=== PATIENT | male | born 1980 | race Caucasian/White ===

== ENCOUNTER 2024-02-25 02:17 | Emergency (ER) | payer BC ==
[~2024-02-25] VITALS: Ht 182.9 cm; Wt 117.9 kg
[2024-02-25] MEDS ORDERED: ONDANSETRON HCL/PF 4 MG/2 ML VIAL ONE (03:00)
[2024-02-25] MEDS: KETOROLAC TROMETHAMINE INJ 30 MG/ML VIAL IV ONE (03:00)
[2024-02-25] MEDS: IV NS 0.9% 1,000 ML BAG IV ONE (03:00)
[2024-02-25] MEDS ORDERED: CEFEPIME 1 GM VIAL ONE (03:01)
[2024-02-25] MEDS ORDERED: MORPHINE SULFATE INJ 4 MG/ML DISP.SYRIN ONE (03:01)
[2024-02-25] MEDS ORDERED: KETOROLAC TROMETHAMINE INJ 30 MG/ML VIAL ONE (03:01)
[2024-02-25 03:10] LABS: EOSINOPHILS # (AUTO) 0.7 K/uL (0.0-0.7); EOSINOPHILS % (AUTO) 4.9 % (0.0-6.0); HEMATOCRIT 46 % (39-51); HEMOGLOBIN 15.6 g/dL (13.5-17.5); LYMPHOCYTES # (AUTO) 0.6 K/uL (0.8-4.8); LYMPHOCYTES % (AUTO) 4.7 % (20.0-44.0); MEAN CORPUSCULAR HEMOGLOBIN 30 PG (26.0-33.0); MEAN CORPUSCULAR HGB CONC 34 g/dl (31.0-36.0); MEAN CORPUSCULAR VOLUME 88 fL (80-96); MONOCYTES # (AUTO) 0.6 K/uL (0.1-1.30); MONOCYTES % (AUTO) 4.1 % (2.0-12.0); NEUTROPHILS # (AUTO) 11.6 K/uL (1.8-8.9); NEUTROPHILS % (AUTO) 86.3 % (43.0-81.0); PLATELET COUNT (AUTO) 219 K/uL (150-450); RED BLOOD CELL COUNT(AUTO) 5.19 MIL/uL (4.5-6.0); RED CELL DISTRIBUTION WIDTH 13.1 % (11.5-15.0); WHITE BLOOD COUNT (AUTO) 13.5 K/uL (4.3-11.0)
[2024-02-25] MEDS ORDERED: VANCOMYCIN 500 MG VIAL ONE (03:10)
[2024-02-25] MEDS: MORPHINE SULFATE INJ 2 MG/ML DISP.SYRIN IV ONE (03:13)
[2024-02-25] MEDS: CEFEPIME 1 GM in IV D5W 50 ML IV ONE (03:14)
[2024-02-25] MEDS: ONDANSETRON HCL/PF 4 MG/2 ML VIAL IVP ONE (03:14)
[2024-02-25] MEDS ORDERED: ACETAMINOPHEN ES 500 MG TABLET ONE (03:18)
[2024-02-25] MEDS: ACETAMINOPHEN ES 500 MG TABLET PO ONE (03:20)
[2024-02-25] MEDS: VANCOMYCIN 1 GM in IV D5W 250 ML IV ONE (03:44)
[2024-02-25 03:49] LABS: CARBON DIOXIDE 26 mmol/L (21-32); CHLORIDE 105 mmol/L (98-107); CREATININE 1.1 mg/dL (0.6-1.3); GLUCOSE 186 mg/dL (74-106); POTASSIUM 3.7 mmol/L (3.5-5.1); SODIUM SERUM 137 mmol/L (136-145); UREA NITROGEN, BLOOD 13 mg/dL (7-18)
[2024-02-25 03:50] LABS: INR 0.96 (0.91-1.10); PROTHROMBIN TIME 10.2 SECS (9.2-11.1)
[2024-02-25 03:55] LABS: ALANINE AMINOTRANSFERASE 24 U/L (12-78); ALBUMIN 3.4 g/dL (3.4-5.0); ALKALINE PHOSPHATASE 97 U/L (46-116); ASPARTATE AMINOTRANSFERASE 17 U/L (15-37); BILIRUBIN,DIRECT 0.3 mg/dL (0.0-0.2); BILIRUBIN,TOTAL 1.8 mg/dL (0.2-1.0); TOTAL PROTEIN, SERUM 7.7 g/dL (6.4-8.2)
[2024-02-25 03:57] LABS: LACTIC ACID 1.7 mmol/L (0.4-2.0)
[2024-02-25] MEDS ORDERED: IOHEXOL-300 100 ML VIAL IV ONE (03:57)
[2024-02-25] MEDS ORDERED: IV NS 0.9% 250 ML IV ONE (03:57)
[2024-02-25] MEDS ORDERED: KETO10TA2 PO (05:07)
[2024-02-25] MEDS ORDERED: CLIN150C16 PO (05:07)
[2024-02-25] MEDS ORDERED: HYDR-4303 PO (05:07)
[2024-02-25 06:33] VITALS: BP 121/76; TEMP 98.5; O2SAT 98
== END 2024-02-25 06:34 | disposition home or self-care (01) ==
LOC: ER 02:23
DX: L03.114 Cellulitis of left upper limb (principal); S61.412D Laceration without foreign body of left hand, subsequent encounter; X58.XXXD Exposure to other specified factors, subsequent encounter; I11.9 Hypertensive heart disease without heart failure; E11.9 Type 2 diabetes mellitus without complications; M79.89 Other specified soft tissue disorders; R50.9 Fever, unspecified; M79.642 Pain in left hand
CPT/HCPCS: 99285; 73201; 96365; 71045; 96367; 96375 ×3; 93005; 84145; 85025; 80048; 87040 ×2; 83605; 80076; 36415; 84484; 85730; J2270; J1885; J3370 ×2; J2405; J7060; J7030 ×2; J7050 ×2; A4223; J0692 ×2; Q9967